=== PATIENT | female | born 2000 | race Caucasian/White ===

== ENCOUNTER 2019-07-07 09:06 | Emergency (ER) | payer BC ==
[2019-07-07] MEDS ORDERED: methylPREDNISolone Sod Succ/PF 125 MG/2 ML VIAL ONE (09:22)
[2019-07-07] MEDS ORDERED: Famotidine 20 MG TAB ONE (09:33)
== END 2019-07-07 13:15 | disposition home or self-care (01) ==
LOC: ERS 09:06
DX: T78.40XA Allergy, unspecified, initial encounter (principal)
CPT/HCPCS: 94760; 96361; 96374; J2930